=== PATIENT | male | born 1995 | race Caucasian/White ===

== ENCOUNTER 2024-05-11 18:37 | Emergency (ER) | payer SELFPAY ==
[2024-05-11] MEDS: Lidocaine 1% with EPINEPHrine 1:100,000 10 ML MDV INJECT ONE (21:20)
[2024-05-11] MEDS: Bacitracin Oint 1 GM U/D Packet TOP ONE (21:20)
== END 2024-05-11 21:23 | disposition home or self-care (01) ==
LOC: MW.ED 18:37
DX: S61.412A Laceration without foreign body of left hand, initial encounter (principal); F17.210 Nicotine dependence, cigarettes, uncomplicated; Z79.899 Other long term (current) drug therapy; W26.8XXA Contact with other sharp object(s), not elsewhere classified, initial encounter
CPT/HCPCS: 12001; 99282; 99283